=== PATIENT | male | born 1950 | race Caucasian/White ===

== ENCOUNTER 2016-05-19 08:52 | Day surgery (SDC) | payer BC ==
[2016-05-19 11:25] VITALS: RESP 20; TEMP 97.2
[2016-05-19 11:36] VITALS: BP 107/71; PULSE 52; O2SAT 97
== END 2016-05-19 11:50 | disposition home or self-care (01) ==
LOC: SURG 08:52
PROVIDERS: ATTEND Surgery
DX: Z12.11 Encounter for screening for malignant neoplasm of colon (principal); Z86.010 Personal history of colon polyps; K64.4 Residual hemorrhoidal skin tags; K64.8 Other hemorrhoids; D36.15 Benign neoplasm of peripheral nerves and autonomic nervous system of abdomen; K62.5 Hemorrhage of anus and rectum; Z79.01 Long term (current) use of anticoagulants
CPT/HCPCS: 45385 ×2; 85610; 99001; J2001; J2704; 36415

== ENCOUNTER 2016-06-18 10:15 | Day surgery (SDC) | payer BC ==
[2016-06-18] MEDS ORDERED: SUCCINYLCHOLINE CHLORIDE 20 MG/ML SOL IV ONE (10:54)
[2016-06-18] MEDS ORDERED: ROCURONIUM BROMIDE 10 MG/ML SOL IV ONE (10:54)
[2016-06-18] MEDS ORDERED: BUPIVACAINE LIPOSOME 20 ML SUS ONE (11:22)
[2016-06-18] MEDS ORDERED: BUPIVACAINE/EPI 0.5% 10 ML SOL INFIL ONE (11:22)
[2016-06-18] MEDS ORDERED: FENTANYL CITRATE 50 MCG/ML SOL ONE (11:23)
[2016-06-18] MEDS ORDERED: LIDOCAINE HCL 1% MPF SOL ONE (11:49)
[2016-06-18] MEDS ORDERED: PROPOFOL 10 MG/ML EMU IV ONE (11:49)
[2016-06-18] MEDS ORDERED: EPHEDRINE SULFATE 50 MG/ML SOL ONE (11:49)
[2016-06-18 12:21] VITALS: RESP 16; TEMP 97
[2016-06-18 12:37] VITALS: BP 102/72; PULSE 53; O2SAT 94
== END 2016-06-18 13:15 | disposition home or self-care (01) ==
LOC: SURG 10:15
PROVIDERS: ATTEND Surgery
DX: K60.2 Anal fissure, unspecified (principal); K64.4 Residual hemorrhoidal skin tags; K64.8 Other hemorrhoids
CPT/HCPCS: J0330; J3010; A6402; J2001; J2704